=== PATIENT | female | born 1940 | race Two or more races ===

== ENCOUNTER 2018-02-26 21:06 | Emergency (ER) | payer MEDICAID ==
[~2018-02-26] VITALS: Ht 160 cm; Wt 84.4 kg
--- NOTE | 2018-02-26 21:15 | NUR ---
[id number] FROM HOME FOR, KELLEY, RT EYEBROW LACERATION, HEMATOMA S/P TRIP & FALL. -KO. PT IS AAOX4. RR EVEN AND UNLABORED. NO S/S OF ACUTE DISTRESS NOTED. SKIN WNL. PT PLACED ON MONITOR AND POX. PT SAFETY AND COMFORT MEASURES IN PLACE. MD BEDSIDE FOR EVAL. WILL CONTINUE TO MONITOR PT.
[2018-02-26 21:27] LABS: LYMPHOCYTES # (AUTO) 1.9 /CMM (0.8-4.8); MONOCYTES # (AUTO) 0.3 /CMM (0.1-1.30); RDW COEFFICIENT OF VARIATION 12.4 (11.5-15.0)
[2018-02-26 21:30] LABS: BASOPHILS # (AUTO) 0.1 /CMM (0.0-0.2); BASOPHILS % (AUTO) 0.9 % (0.0-2.0); EOSINOPHILS % (AUTO) 0.1 % (0.0-6.0); HEMATOCRIT 33 % (33-45); HEMOGLOBIN 11.4 g/dL (11.5-14.8); LYMPHOCYTES % (AUTO) 22.5 % (20.0-44.0); MEAN CORPUSCULAR HGB CONC 34 g/dl (31.0-36.0); MEAN CORPUSCULAR VOLUME 95 fL (82-100); MONOCYTES % (AUTO) 3.8 % (2.0-12.0); NEUTROPHILS % (AUTO) 72.7 % (43.0-81.0); PLATELET COUNT (AUTO) 189 /CMM (150-450); RED BLOOD CELL COUNT(AUTO) 3.51 MIL/uL (4.0-5.2); WHITE BLOOD COUNT (AUTO) 8.3 K/uL (4.3-11.0)
[2018-02-26 21:38] LABS: CALCIUM, SERUM 9.5 mg/dL (8.5-10.1); CARBON DIOXIDE 27 mmol/L (21-32); CHLORIDE 106 mmol/L (98-107); CREATININE 2.5 mg/dL (0.6-1.3); GLUCOSE 217 mg/dL (74-106); POTASSIUM 5.5 mmol/L (3.5-5.1); SODIUM SERUM 140 mmol/L (136-145); UREA NITROGEN, BLOOD 45 mg/dL (7-18)
[2018-02-26 21:41] LABS: INR 0.85 (0.85-1.15)
[2018-02-26 21:46] LABS: TROPONIN I < 0.017 ng/mL (0.00-0.056)
--- NOTE | 2018-02-26 22:07 | NUR ---
Patient discharged to home in stable condition. Written and verbal after care instructions given. Patient verbalizes understanding of instruction. PT AMBULATED WITH WALKER WITH ASSISTANCE BY FAMILY MEMBER. NO S/S OF DISTRESS UPON DISCHARGE
[2018-02-26 22:10] VITALS: BP 149/55
== END 2018-02-26 22:11 | disposition home or self-care (01) ==
LOC: ER 21:10
DX: S01.81XA Laceration without foreign body of other part of head, initial encounter (principal); E78.00 Pure hypercholesterolemia, unspecified; I12.9 Hypertensive chronic kidney disease with stage 1 through stage 4 chronic kidney disease, or unspecified chronic kidney disease; N18.9 Chronic kidney disease, unspecified; W01.0XXA Fall on same level from slipping, tripping and stumbling without subsequent striking against object, initial encounter; Y93.89 Activity, other specified; Y92.89 Other specified places as the place of occurrence of the external cause; Y99.8 Other external cause status
CPT/HCPCS: 36415; 70450-TC; 80048-TC; 84484-TC; 85025-TC; 85730-TC; A4606; Z7610